=== PATIENT | male | born 1960 | race Caucasian/White ===

== ENCOUNTER 2018-07-07 02:29 | Emergency (ER) | payer OTHER ==
[~2018-07-07] VITALS: Ht 160 cm; Wt 74.8 kg
[~2018-07-07 02:29] MED LIST: ALBU18HF INHALATION; ALBU2.5V3 NEB; ALBU8.5H8 INH; ALBU90AE INHALATION; AZIT250T PO; CETI10CA PO; D-ME473S2 PO; GUAI118L94 PO; IBUP-1542 PO; LEVO500T48 PO; MED4DP PO; PRED20TA PO; PRED50TA PO
[2018-07-07 02:34] VITALS: BP 150/79; Ht 160 cm; Wt 74.8 kg
[2018-07-07] MEDS ORDERED: ALBUTEROL 0.5% (NEB) 2.5 MG/0.5 ML AMP INH STA (02:42)
[2018-07-07] MEDS ORDERED: DEXAMETHASONE 10 MG/ML 1 ML INJ IM STA (02:42)
[2018-07-07] MEDS ORDERED: IPRATROPIUM (NEB) 0.5 MG/2.5 ML AMP INH STA (02:42)
--- NOTE | 2018-07-07 02:50 | ERD ---
ER Documentation Chief Complaint Chief Complaint ASTHMA EXACERBATION HPI 57-year-old male, with history of asthma, presents the emergency department, complaining of 2 days with progressive worsening of cough and wheezing, associated with shortness of breath on exertion. The patient has been using his inhaler every 6 hours without improvement of the symptoms. Otherwise he denies chest pain, no history of hospital admissions or intubations ROS All systems reviewed and are negative except as per history of present illness. Medications Home Meds Active Scripts Albuterol Sulfate* (Albuterol Sulfate* Neb) 0.083%-3 Ml Neb, 2.5 MG NEB Q4 PRN for SHORTNESS OF BREATH, #30 EA Prov:DOREEN FITZGERALD MD 07/07/18 Albuterol Sulfate* (Proair HFA*) 8.5 Gm Hfa.aer.ad, 2 PUFF INH Q4, #1 INHALER Prov:DOREEN FITZGERALD MD 07/07/18 Azithromycin* (Zithromax*) 250 Mg Tablet, 250 MG PO .ZPACK DIRECTED, #6 TAB TAKE 500 MG (2 TABS) THE FIRST DAY THEN 250 MG (1 TAB) DAYS 2-5 Prov:DOREEN FITZGERALD MD 07/07/18 Prednisone* (Prednisone*) 20 Mg Tab, 60 MG PO DAILY for 5 Days, TAB Prov:DOREEN FITZGERALD MD 07/07/18 Albuterol Sulfate* (Ventolin HFA*) 18 Gm Hfa.aer.ad, 2 PUFF INHALATION Q4H, #1 INHALER Prov:VIVIANE DURAN 02/18/16 Prednisone* (Prednisone*) 20 Mg Tab, 40 MG PO DAILY for 4 Days, TAB Prov:VIVIANE DURAN 02/18/16 Azithromycin* (Zithromax*) 250 Mg Tablet, 250 MG PO .ZPACK DIRECTED, #6 TAB TAKE 500 MG (2 TABS) THE FIRST DAY THEN 250 MG (1 TAB) DAYS 2-5 Prov:VIVIANE DURAN 02/18/16 Azithromycin* (Zithromax*) 250 Mg Tablet, 250 MG PO .ZPACK DIRECTED, #6 TAB TAKE 500 MG (2 TABS) THE FIRST DAY THEN 250 MG (1 TAB) DAYS 2-5 Prov:ANNIE ORTIZ MD 02/11/16 Albuterol Sulfate* (Albuterol Sulfate* Neb) 0.083%-3 Ml Neb, 2.5 MG NEB Q4 PRN for SHORTNESS OF BREATH, #30 EA Prov:ANNIE ORTIZ MD 02/11/16 Prednisone* (Prednisone*) 20 Mg Tab, 60 MG PO DAILY for 6 Days, TAB 60 mg and mouth for 3 days then 40 mg and mouth for 3 days Prov:ANNIE ORTIZ MD 02/11/16 Prednisone* (Prednisone*) 20 Mg Tab, 40 MG PO DAILY for 4 Days, TAB Prov:NELLY WATKINS PA-C 01/26/16 Albuterol Sulfate* (Proair HFA*) 8.5 Gm Hfa.aer.ad, 2 PUFF INH Q4, #1 INHALER Prov:NELLY WATKINS PA-C 01/26/16 Prednisone* (Prednisone*) 20 Mg Tab, 40 MG PO DAILY for 4 Days, TAB Prov:CECILIA HERNANDEZ PA-C 12/24/15 Azithromycin* (Zithromax*) 250 Mg Tablet, 250 MG PO .ZPACK DIRECTED, #6 TAB TAKE 500 MG (2 TABS) THE FIRST DAY THEN 250 MG (1 TAB) DAYS 2-5 Prov:CECILIA HERNANDEZ PA-C 12/24/15 Cetirizine Hcl* (Zyrtec*) 10 Mg Capsule, 10 MG PO DAILY, #30 TAB.CHEW Prov:RC URBINA NP 10/23/15 Guaifenesin-Codeine Phosphate* (Guaifenesin* with Codeine Liq) 120 Ml Liquid, 5 ML PO Q4H for COUGH, #60 ML Prov:RC URBINA NP 10/23/15 Prednisone* (Prednisone*) 50 Mg Tablet, 50 MG PO DAILY, #5 TAB Prov:RC URBINA NP 10/23/15 Ibuprofen* (Motrin*) 600 Mg Tab, 600 MG PO Q6H PRN for PAIN AND OR ELEVATED TEMP , #30 TAB Prov:RC URBINA NP 10/23/15 Albuterol Sulfate* (Proair HFA*) 8.5 Gm Hfa.aer.ad, 2 PUFF INH Q4H PRN for WHEEZING AND SOB, #1 INHALER Prov:RC URBINA NP 10/23/15 Methylprednisolone* (Medrol* DOSE PACK) 4 Mg/Dose-Pack Tab.ds.pk, 4 MG PO . DIRECTED, #1 PACKET Prov:DAVID PIERSON F 04/20/15 Levofloxacin* (Levaquin*) 500 Mg Tab, 750 MG PO DAILY for 5 Days, TAB Prov:DAVID PIERSON F 04/20/15 Reported Medications Dextromethorphan Hb-Promethazine Hcl* (Promethazine DM* Syrup) 473 Ml Syrup, 5 ML PO Q6 PRN for COUGH, ML 04/20/15 Albuterol Sulfate (Proair Respiclick) 90 Mcg Aer.pow.ba, 1 PUFF INHALATION Q4 PRN for WHEEZING AND SOB, #1 BOTTLE 04/20/15 Allergies Allergies: Coded Allergies: No Known Allergy (Unverified , 02/11/16) PMhx/Soc Medical and Surgical Hx: pt denies Medical Hx, pt denies Surgical Hx History of Surgery: No Anesthesia Reaction: No Hx Neurological Disorder: No Hx Respiratory Disorders: Yes (asthma ) Hx Cardiac Disorders: No Hx Psychiatric Problems: No Hx Miscellaneous Medical Probl: No Hx Alcohol Use: No Hx Substance Use: No Hx Tobacco Use: No Smoking Status: Never smoker Physical Exam Vitals Vital Signs Date Temp Pulse Resp B/P (MAP) Pulse Ox O2 O2 Flow FiO2 Time Delivery Rate 07/07/18 89 20 98 Room Air 04:03 07/07/18 76 20 100 Nasal 3.0 02:57 Cannula 07/07/18 97.6 83 20 150/79 99 02:34 (102) Physical Exam Patient alert, oriented, in mild respiratory distress due to cough and wheezing. Vital signs stable. HEENT: Normocephalic, atraumatic. EYES: PERRLA, EOMI, Sclera and conjunctiva appear normal. EARS: Canals clear, tympanic membranes WNL. THROAT: Normal oropharynx. NECK: Supple, No lymphadenopathy. Full ROM without pain or tenderness. HEART: RRR, no rubs, murmurs, clicks or gallops. LUNGS: Bilateral wheezing to auscultation. ABDOMEN: Soft, non-tender without masses or hepatosplenomegaly. EXTREMITIES: No edema bilaterally. BACK: Full ROM, no deformity, normal back exam NEURO: Cranial nerves grossly intact, no motor or sensory deficit SKIN: No rashes, no petechia. Results 24 hrs Current Medications Medications Dose Sig/Carlos Start Time Status Last (Trade) Ordered Route PRN Stop Time Admin Dose Reason Admin Albuterol 10 mg ONCE STAT 07/07/18 DC 07/07/18 (Proventil INH 02:42 07/07/18 02:57 0.5% (Neb)) 02:44 Ipratropium 1 mg ONCE STAT 07/07/18 DC 07/07/18 Mullens INH 02:42 07/07/18 02:57 (Atrovent 02:44 0.02% (Neb)) 10 mg ONCE STAT 07/07/18 DC 07/07/18 Dexamethasone IM 02:42 07/07/18 02:53 (Decadron) 02:44 Procedures/MDM At the time of discharge, vital signs stable, no respiratory distress. Differential diagnosis include but not limited to: Respiratory infection bacterial/viral/fungal. Asthma/COPD, pneumonitis, allergies, GERD. Less likely foreign body aspiration, cardiac related, aspiration pneumonia, malignancy. Physical examination and clinical presentation consistent most likely with acute asthma exacerbation with early superimposed bacterial infection. During the ED course the patient remained stable, received a nebulized treatment and steroids in the ED presenting overall improvement of the symptoms, no new complaints. Clinical impression discussed with the patient who agrees with management. The patient is stable to be treated outpatient and will be discharged home. Some side effects of prescribed medications (headache, rash, nausea, vomiting, diarrhea, drowsiness, habituation, bleeding, hypertension, interactions with other medications) were reviewed. The patient was instructed to follow up with the primary care provider in the next 48h. If symptoms persist, worsen or new symptoms develop, then patient should return to the ED immediately. Disclaimer: Inadvertent spelling and grammatical errors are likely due to EHR/dictation software use and do not reflect on the overall quality of patient care. Also, please note that the electronic time recorded on this note does not necessarily reflect the actual time of the patient encounter. Departure Diagnosis: Primary Impression: Asthma with acute exacerbation Condition: Stable Additional Instructions: Holly [facility]oit [facility] para arguelles servicio. Esperamos que en arguelles visita a la ezio de emergencia arguelles problema medico haya sido solucionado y que se sienta mucho mejor. Para estar seguros que arguelles mejoria sigue en proceso, le pedimos el favor de hacer vanessa deana de seguimiento medico con arguelles doctor primario en los proximos 2-4 polanco. Lleve con usted estos documentos y las medicinas recetadas. Si baylee sintomas empeoran, NO SE ESPERE, por favor regrese a ezio de emergencia INMEDIATAMENTE. En gabby que usted no tenga un mdico de atencin primaria: Llame al mdico o clnica comunitaria de referencia que aparece abajo tamanna las horas de consultorio para hacer vanessa deana para que le vean. CLINICAS: [facility] [phone] [facility] [phone] [facility] [phone] [facility] [phone] [address] [facility]. [facility] [phone] [address] [facility] [phone] DOREEN SÁNCHEZ MD Jul 07, 2018 02:50
[2018-07-07 04:03] VITALS: PULSE 89; RESP 20
[2018-07-07] MEDS ORDERED: PRED20TA PO (04:29)
[2018-07-07] MEDS ORDERED: AZIT250T PO (04:30)
[2018-07-07] MEDS ORDERED: ALBU8.5H8 INH (04:30)
[2018-07-07] MEDS ORDERED: ALBU2.5V3 NEB (04:41)
== END 2018-07-07 04:43 | disposition home or self-care (01) ==
LOC: FTE 02:29
DX: J45.901 Unspecified asthma with (acute) exacerbation (principal)
CPT/HCPCS: 94644; J1100; 96372

== ENCOUNTER 2018-08-05 16:32 | Emergency (ER) | payer OTHER ==
[~2018-08-05] VITALS: Ht 157.5 cm; Wt 72.0 kg
[2018-08-05 16:36] VITALS: Ht 157.5 cm; Wt 72.0 kg
[2018-08-05] MEDS ORDERED: LIDOCAINE 1% (MPF) 5 ML VIAL INFIL ONE (20:00)
[2018-08-05 21:57] VITALS: BP 132/87; PULSE 68; RESP 18
--- NOTE | 2018-08-06 20:08 | ERD ---
ER Documentation Chief Complaint Chief Complaint complains of a abscess to the buttock area x2 days HPI History of Present Illness: 57-year-old male who reports a past medical history of asthma coming in today with complaint of possible abscess of the buttocks area present for 2 days and worsening. Patient reports similar symptoms before a few years ago. Patient denies any other associated symptoms. Patient able to have bowel movement, no blood noted. At home pharmacological/nonpharmacological treatment for symptoms: denies Denies social concerns; Denies recent foreign travel ROS All systems reviewed and are negative except as per history of present illness. Medications Home Meds Active Scripts Albuterol Sulfate* (Albuterol Sulfate* Neb) 0.083%-3 Ml Neb, 2.5 MG NEB Q4 PRN for SHORTNESS OF BREATH, #30 EA Prov:DOREEN FITZGERALD MD 07/07/18 Albuterol Sulfate* (Proair HFA*) 8.5 Gm Hfa.aer.ad, 2 PUFF INH Q4, #1 INHALER Prov:DOREEN FITZGERALD MD 07/07/18 Azithromycin* (Zithromax*) 250 Mg Tablet, 250 MG PO .ZPACK DIRECTED, #6 TAB TAKE 500 MG (2 TABS) THE FIRST DAY THEN 250 MG (1 TAB) DAYS 2-5 Prov:DOREEN FITZGERALD MD 07/07/18 Prednisone* (Prednisone*) 20 Mg Tab, 60 MG PO DAILY for 5 Days, TAB Prov:DOREEN FITZGERALD MD 07/07/18 Albuterol Sulfate* (Ventolin HFA*) 18 Gm Hfa.aer.ad, 2 PUFF INHALATION Q4H, #1 INHALER Prov:VIVIANE DURAN 02/18/16 Prednisone* (Prednisone*) 20 Mg Tab, 40 MG PO DAILY for 4 Days, TAB Prov:VIVIANE DURAN 02/18/16 Azithromycin* (Zithromax*) 250 Mg Tablet, 250 MG PO .ZPACK DIRECTED, #6 TAB TAKE 500 MG (2 TABS) THE FIRST DAY THEN 250 MG (1 TAB) DAYS 2-5 Prov:VIVIANE DURAN 02/18/16 Azithromycin* (Zithromax*) 250 Mg Tablet, 250 MG PO .ZPACK DIRECTED, #6 TAB TAKE 500 MG (2 TABS) THE FIRST DAY THEN 250 MG (1 TAB) DAYS 2-5 Prov:ANNIE ORTIZ MD 02/11/16 Albuterol Sulfate* (Albuterol Sulfate* Neb) 0.083%-3 Ml Neb, 2.5 MG NEB Q4 PRN for SHORTNESS OF BREATH, #30 EA Prov:ANNIE ORTIZ MD 02/11/16 Prednisone* (Prednisone*) 20 Mg Tab, 60 MG PO DAILY for 6 Days, TAB 60 mg and mouth for 3 days then 40 mg and mouth for 3 days Prov:ANNIE ORTIZ MD 02/11/16 Prednisone* (Prednisone*) 20 Mg Tab, 40 MG PO DAILY for 4 Days, TAB Prov:NELLY WATKINS PA-C 01/26/16 Albuterol Sulfate* (Proair HFA*) 8.5 Gm Hfa.aer.ad, 2 PUFF INH Q4, #1 INHALER Prov:NELLY WATKINS PA-C 01/26/16 Prednisone* (Prednisone*) 20 Mg Tab, 40 MG PO DAILY for 4 Days, TAB Prov:CECILIA HERNANDEZ PA-C 12/24/15 Azithromycin* (Zithromax*) 250 Mg Tablet, 250 MG PO .DennisPACASIMIRO DIRECTED, #6 TAB TAKE 500 MG (2 TABS) THE FIRST DAY THEN 250 MG (1 TAB) DAYS 2-5 Prov:CECILIA HERNANDEZ PA-C 12/24/15 Cetirizine Hcl* (Zyrtec*) 10 Mg Capsule, 10 MG PO DAILY, #30 TAB.CHEW Prov:RC URBINA NP 10/23/15 Guaifenesin-Codeine Phosphate* (Guaifenesin* with Codeine Liq) 120 Ml Liquid, 5 ML PO Q4H for COUGH, #60 ML Prov:RC URBINA NP 10/23/15 Prednisone* (Prednisone*) 50 Mg Tablet, 50 MG PO DAILY, #5 TAB Prov:RC URBINA NP 10/23/15 Ibuprofen* (Motrin*) 600 Mg Tab, 600 MG PO Q6H PRN for PAIN AND OR ELEVATED TEMP, #30 TAB Prov:RC URBINA KOMAL Toth. EMERGENCY MEDICAL SERVICES COORDINATOR 10/23/15 Albuterol Sulfate* (Proair HFA*) 8.5 Gm Hfa.aer.ad, 2 PUFF INH Q4H PRN for WHEEZING AND SOB, #1 INHALER Prov:RC URBINA Janey. EMERGENCY MEDICAL SERVICES COORDINATOR 10/23/15 Methylprednisolone* (Medrol* DOSE PACK) 4 Mg/Dose-Pack Tab.ds.pk, 4 MG PO . DIRECTED, #1 PACKET Prov:DAVID PIERSON F 04/20/15 Levofloxacin* (Levaquin*) 500 Mg Tab, 750 MG PO DAILY for 5 Days, TAB Prov:DAVID PIERSON F 04/20/15 Reported Medications Dextromethorphan Hb-Promethazine Hcl* (Promethazine DM* Syrup) 473 Ml Syrup, 5 ML PO Q6 PRN for COUGH, ML 04/20/15 Albuterol Sulfate (Proair Respiclick) 90 Mcg Aer.pow.ba, 1 PUFF INHALATION Q4 PRN for WHEEZING AND SOB, #1 BOTTLE 04/20/15 Allergies Allergies: Coded Allergies: No Known Allergy (Unverified , 02/11/16) PMhx/Soc History of Surgery: No Anesthesia Reaction: No Hx Neurological Disorder: No Hx Respiratory Disorders: Yes (asthma ) Hx Cardiac Disorders: No Hx Psychiatric Problems: No Hx Miscellaneous Medical Probl: Yes (Hemrrhoids/abscess) Hx Alcohol Use: No Hx Substance Use: No Hx Tobacco Use: No Smoking Status: Never smoker FmHx Family History: diabetes Physical Exam Vitals Vital Signs Date Temp Pulse Resp B/P (MAP) Pulse Ox O2 O2 Flow FiO2 Time Delivery Rate 08/05/18 98.0 68 18 132/87 97 Room Air 21:57 (102) 08/05/18 98.6 70 20 145/82 99 16:36 (103) Physical Exam Const: No acute distress Head: Atraumatic Eyes: Normal Conjunctiva ENT: Normal External Ears, Nose and Mouth. Neck: Full range of motion. No meningismus. Resp: Clear to auscultation bilaterally Cardio: Regular rate and rhythm, no murmurs Abd: Soft, non tender, non distended. Normal bowel sounds Skin: No petechiae or rashes Back: No midline or flank tenderness Ext: No cyanosis, or edema Neur: Awake and alert Psych: Normal Mood and Affect Rectal Exam: External hemorrhoids noted, firm to touch, no warmth, no erythema Results 24 hrs Current Medications Medications Dose Sig/Carlos Start Time Status Last (Trade) Ordered Route PRN Stop Time Admin Dose Reason Admin Lidocaine 5 ml ONCE ONCE 08/05/18 DC (Xylocaine INFIL 20:00 08/05/18 1% (Mpf)) 20:01 Procedures/MDM ED course includes a thorough examination and history. ED course includes incision and drainage. Medications: Imaging: Labs: Dr. Humphreys to bedside to evaluate patient. Agrees with plan of care. Low suspicion for life-threatening medical emergency. Low suspicion for gastrointestinal emergency that requires hospitalization or immediate surgical intervention. Incision and Drainage by me: Location: Rectum Anesthesia: Local 1% Lidocaine Technique: 16-gauge needle used to puncture external hemorrhoid, thrombosed clots expelled; only was able to remove approximately 30% of thrombosed clots, some appeared to be more internal so did not attempt to remove those. Packing: None Complications: patient with mild bleeding; reported that he takes aspirin every day and has taken 600 to 800 mg of ibuprofen for pain over the past day; bleeding control at time of departure Otherwise healthy patient presenting with constellation of symptoms likely representing thrombosed external hemorrhoids as characterized by history, physical exam findings. No respiratory distress, otherwise relatively well appearing and nontoxic. Patient educated on diagnoses, prescriptions, follow-up care, return precautions. Strict return precautions given for worsening condition; questions answered discharge. Disposition for discharge with followup in 2 days with PCP/clinic. Departure Diagnosis: Primary Impression: Thrombosed external hemorrhoids Condition: Stable Patient Instructions: Thrombosed Hemorrhoids Referrals: [facility] YOU HAVE RECEIVED A MEDICAL SCREENING EXAM AND THE RESULTS INDICATE THAT YOU DO NOT HAVE A CONDITION THAT REQUIRES URGENT TREATMENT IN THE EMERGENCY DEPARTMENT. FURTHER EVALUATION AND TREATMENT OF YOUR CONDITION CAN WAIT UNTIL YOU ARE SEEN IN YOUR DOCTORS OFFICE WITHIN THE NEXT 1-2 DAYS. IT IS YOUR RESPONSIBILITY TO MAKE AN APPOINTMENT FOR FOLOW-UP CARE. IF YOU HAVE A PRIMARY DOCTOR --you should call your primary doctor and schedule an appointment IF YOU DO NOT HAVE A PRIMARY DOCTOR YOU CAN CALL OUR PHYSICIAN REFERRAL HOTLINE AT IF YOU CAN NOT AFFORD TO SEE A PHYSICIAN YOU CAN CHOSE FROM THE FOLLOWING [facility] [address] [facility] [address] [facility] [address] [facility] [address] [facility]. [facility] [address] [facility]. [facility] [address] [facility]. [facility] YOU HAVE RECEIVED A MEDICAL SCREENING EXAM AND THE RESULTS INDICATE THAT YOU DO NOT HAVE A CONDITION THAT REQUIRES URGENT TREATMENT IN THE EMERGENCY DEPARTMENT. FURTHER EVALUATION AND TREATMENT OF YOUR CONDITION CAN WAIT UNTIL YOU ARE SEEN IN YOUR DOCTORS OFFICE WITHIN THE NEXT 1-2 DAYS. IT IS YOUR RESPONSIBILITY TO MAKE AN APPOINTMENT FOR FOLOW-UP CARE. IF YOU HAVE A PRIMARY DOCTOR --you should call your primary doctor and schedule and appointment IF YOU DO NOT HAVE A PRIMARY DOCTOR YOU CAN CALL OUR PHYSICIAN REFERRAL HOTLINE AT . IF YOU CAN NOT AFFORD TO SEE A PHYSICIAN YOU CAN CHOSE FROM THE FOLLOWING [facility]: [facility] [address] [place] [address] [facility] [address] [place] [address] [facility] [address] [place] [address] Additional Instructions: Call your primary care doctor TOMORROW for an appointment during the next 2-3 days.See the doctor sooner or return here if your condition worsens before your appointment time. ED follow-up with your primary care doctor for possible evaluation of your hemorrhoids. It is recommended to take a sitz bath twice a day. Keep the area clean and dry. Try to avoid the site that was removed. THELMA AU NP August 06, 2018 20:08
== END 2018-08-05 21:59 | disposition home or self-care (01) ==
LOC: FTE 16:32
DX: K64.5 Perianal venous thrombosis (principal); J45.909 Unspecified asthma, uncomplicated

== ENCOUNTER 2018-10-31 04:22 | Emergency (ER) | payer OTHER ==
[~2018-10-31] VITALS: Ht 165.1 cm; Wt 74.3 kg
[~2018-10-31 04:22] MED LIST changes: +BENZ-6 PO
[2018-10-31 04:29] VITALS: BP 152/74; PULSE 82; RESP 18; Ht 165.1 cm; Wt 74.3 kg
[2018-10-31] MEDS ORDERED: ALBUTEROL 0.083% (NEB) 2.5 MG/3 ML AMP HHN STA ×2 (04:45→05:32)
--- NOTE | 2018-10-31 04:49 | ERD ---
ER Documentation Chief Complaint Chief Complaint SOB/ASTHMA X 3 DAYS HPI This is a 57-year-old male who presents emergency department with complaints of shortness of breath, wheezing for about 3 days. Stated that his inhaler is not working. Stated that he has history of asthma. Denies headache, head injury, loss of consciousness, dizziness, neck pain, neck stiffness, throat pain, difficulty swallowing, difficulty breathing lying flat, shoulder pain, chest pain, back pain, abdominal pain, nausea, vomiting, constipation, diarrhea, urinary symptoms, loss of bowel and bladder control, trauma, injury, falls, difficulty walking due to pain, numbness or tingling sensation, calf pain, recent travel, recent major surgery in the last 3 weeks, calf pain, recent long travel, recent exposure to any illness, recent antibiotic use in the last 3 months, fever, chills, seizures. Past medical history: Asthma. Surgical history: Denies. Social: Denies smoking, use of alcoholic beverages, use of illegal drugs. ROS All systems reviewed and are negative except as per history of present illness. Medications Home Meds Active Scripts Albuterol Sulfate* (Albuterol Sulfate* Neb) 0.083%-3 Ml Neb, 2.5 MG NEB Q4 PRN for SHORTNESS OF BREATH, #30 EA Prov:RAVEN VALENTINO 10/31/18 Albuterol Sulfate* (Proair HFA*) 8.5 Gm Hfa.aer.ad, 2 PUFF INH Q4 PRN for WHEEZING, #1 INHALER Prov:RAVEN VALENTINO 10/31/18 Prednisone* (Prednisone*) 20 Mg Tab, 60 MG PO DAILY for 4 Days, TAB Prov:RAVEN VALENTINO 10/31/18 Benzonatate* (Tessalon Perle*) 100 Mg Capsule, 100 MG PO Q8H PRN for COUGH, #15 CAP Prov:RAVEN VALENTINO 10/31/18 Azithromycin* (Zithromax*) 250 Mg Tablet, 250 MG PO .CLEOCK DIRECTED, #6 TAB TAKE 500 MG (2 TABS) THE FIRST DAY THEN 250 MG (1 TAB) DAYS 2-5 Prov:RAVEN VALENTINO 10/31/18 Albuterol Sulfate* (Albuterol Sulfate* Neb) 0.083%-3 Ml Neb, 2.5 MG NEB Q4 PRN for SHORTNESS OF BREATH, #30 EA Prov:DOREEN FITZGERALD MD 07/07/18 Albuterol Sulfate* (Proair HFA*) 8.5 Gm Hfa.aer.ad, 2 PUFF INH Q4, #1 INHALER Prov:DOREEN FITZGERALD MD 07/07/18 Azithromycin* (Zithromax*) 250 Mg Tablet, 250 MG PO .DennisPACASIMIRO DIRECTED, #6 TAB TAKE 500 MG (2 TABS) THE FIRST DAY THEN 250 MG (1 TAB) DAYS 2-5 Prov:DOREEN FITZGERALD MD 07/07/18 Prednisone* (Prednisone*) 20 Mg Tab, 60 MG PO DAILY for 5 Days, TAB Prov:DOREEN FITZGERALD MD 07/07/18 Albuterol Sulfate* (Ventolin HFA*) 18 Gm Hfa.aer.ad, 2 PUFF INHALATION Q4H, #1 INHALER Prov:VIVIANE DURAN 02/18/16 Prednisone* (Prednisone*) 20 Mg Tab, 40 MG PO DAILY for 4 Days, TAB Prov:VIVIANE DURAN 02/18/16 Azithromycin* (Zithromax*) 250 Mg Tablet, 250 MG PO .JOSÉ MIGUEL DIRECTED, #6 TAB TAKE 500 MG (2 TABS) THE FIRST DAY THEN 250 MG (1 TAB) DAYS 2-5 Prov:VIVIANE DURAN 02/18/16 Azithromycin* (Zithromax*) 250 Mg Tablet, 250 MG PO .JOSÉ MIGUEL DIRECTED, #6 TAB TAKE 500 MG (2 TABS) THE FIRST DAY THEN 250 MG (1 TAB) DAYS 2-5 Prov:ANNIE ORTIZ MD 02/11/16 Albuterol Sulfate* (Albuterol Sulfate* Neb) 0.083%-3 Ml Neb, 2.5 MG NEB Q4 PRN for SHORTNESS OF BREATH, #30 EA Prov:ANNIE ORTIZ MD 02/11/16 Prednisone* (Prednisone*) 20 Mg Tab, 60 MG PO DAILY for 6 Days, TAB 60 mg and mouth for 3 days then 40 mg and mouth for 3 days Prov:ANNIE ORTIZ MD 02/11/16 Prednisone* (Prednisone*) 20 Mg Tab, 40 MG PO DAILY for 4 Days, TAB Prov:NELLY WATKINS PA-C 01/26/16 Albuterol Sulfate* (Proair HFA*) 8.5 Gm Hfa.aer.ad, 2 PUFF INH Q4, #1 INHALER Prov:NELLY WATKINS PA-C 01/26/16 Prednisone* (Prednisone*) 20 Mg Tab, 40 MG PO DAILY for 4 Days, TAB Prov:CECILIA HERNANDEZ PA-C 12/24/15 Azithromycin* (Zithromax*) 250 Mg Tablet, 250 MG PO .ZPACK DIRECTED, #6 TAB TAKE 500 MG (2 TABS) THE FIRST DAY THEN 250 MG (1 TAB) DAYS 2-5 Prov:CECILIA HERNANDEZ PA-C 12/24/15 Cetirizine Hcl* (Zyrtec*) 10 Mg Capsule, 10 MG PO DAILY, #30 TAB.CHEW Prov:RC URBINA NP 10/23/15 Guaifenesin-Codeine Phosphate* (Guaifenesin* with Codeine Liq) 120 Ml Liquid, 5 ML PO Q4H for COUGH, #60 ML Prov:RC URBINA NP 10/23/15 Prednisone* (Prednisone*) 50 Mg Tablet, 50 MG PO DAILY, #5 TAB Prov:RC URBINA NP 10/23/15 Ibuprofen* (Motrin*) 600 Mg Tab, 600 MG PO Q6H PRN for PAIN AND OR ELEVATED TEMP, #30 TAB Prov:RC URBINA NP 10/23/15 Albuterol Sulfate* (Proair HFA*) 8.5 Gm Hfa.aer.ad, 2 PUFF INH Q4H PRN for WHEEZING AND SOB, #1 INHALER Prov:RC URBINA NP 10/23/15 Methylprednisolone* (Medrol* DOSE PACK) 4 Mg/Dose-Pack Tab.ds.pk, 4 MG PO . DIRECTED, #1 PACKET Prov:DAVID PIERSON 04/20/15 Levofloxacin* (Levaquin*) 500 Mg Tab, 750 MG PO DAILY for 5 Days, TAB Prov:DAVID PIERSON 04/20/15 Reported Medications Dextromethorphan Hb-Promethazine Hcl* (Promethazine DM* Syrup) 473 Ml Syrup, 5 ML PO Q6 PRN for COUGH, ML 04/20/15 Albuterol Sulfate (Proair Respiclick) 90 Mcg Aer.pow.ba, 1 PUFF INHALATION Q4 PRN for WHEEZING AND SOB, #1 BOTTLE 04/20/15 Allergies Allergies: Coded Allergies: No Known Allergy (Unverified , 02/11/16) PMhx/Soc Medical and Surgical Hx: pt denies Surgical Hx History of Surgery: No Anesthesia Reaction: No Hx Neurological Disorder: No Hx Respiratory Disorders: Yes (asthma ) Hx Cardiac Disorders: No Hx Psychiatric Problems: No Hx Miscellaneous Medical Probl: Yes (Hemrrhoids/abscess) Hx Alcohol Use: No Hx Substance Use: No Hx Tobacco Use: No Smoking Status: Never smoker Physical Exam Vitals Physical Exam Head: Atraumatic Eyes: Normal Conjunctiva ENT: Normal External Ears, Nose and Mouth. Bilateral ears: TMs are not erythematous. No bleeding. No discharge. No hearing loss. No mastoid tenderness. Nose: There is no frontal or maxillary sinus tenderness palpation. Throat: Uvula is in midline and nondisplaced. Tonsils are +1 bilaterally withou t redness and without exudates. Tolerating secretions. Patent airway. Speaks full and clear sentences. No tripoding. Neck: Full range of motion. No meningismus. No nuchal rigidity. No signs of meningeal irritation. Resp: Wheezing bilaterally. Cardio: Regular rate and rhythm, no murmurs Abd: Soft, non tender, non distended. Normal bowel sounds. Negative Wright sign. Skin: No petechiae or rashes. Color appears normal for ethnicity. No skin tenting. No signs of severe dehydration. Back: No midline or flank tenderness Ext: No cyanosis, or edema Neur: Awake and alert. No neurological deficits. Psych: Normal Mood and Affect Results 24 hrs Current Medications Medications Dose Sig/Carlos Start Time Status Last (Trade) Ordered Route PRN Stop Time Admin Dose Reason Admin Albuterol 5 mg ONCE STAT 10/31/18 DC 10/31/18 (Proventil HHN 04:45 05:00 0.083% (Neb)) 10/31/18 04:47 Ipratropium 0.5 mg ONCE ONCE 10/31/18 DC 10/31/18 [place] [facility] 05:00 05:00 (Atrovent 10/31/18 05:01 0.02% (Neb)) 125 mg ONCE ONCE 10/31/18 DC 10/31/18 Methylprednis IV 05:00 04:54 olone Sodium 10/31/18 05:01 Succinate (Solu-Medrol) Albuterol 5 mg ONCE STAT 10/31/18 DC 10/31/18 (Proventil HHN 05:32 05:50 0.083% (Neb)) 10/31/18 05:33 Procedures/MDM Diagnostic tests: Clinical exam. Treatment: Saline lock. Solu-Medrol IV. Albuterol and Atrovent breathing treatment. Re-evaluation: Respirations even and unlabored. No accessory muscle use in breathing. No wheezing. Lung sounds are clear to auscultation. Speaks full and clear sentences. Stated that he feels much better this time and that is ready to go home. Stated that he is comfortable to go home. Differential diagnosis I have low suspicion for sepsis, peritonsillar abscess, aspiration pneumonia, pneumonia, bronchospasms. Final diagnosis: Asthma exacerbation. Prescription: Pro-air. Prednisone. Tessalon Perles. Follow-up with PCP in the next 24-48 hours. Come back here in the emergency department for any new symptoms or any worsening symptoms. All questions and concerns were answered. Patient and family members verbalized understanding and agreed with plan of care. Hemodynamically stable on discharge. Departure Diagnosis: Primary Impression: Asthma with acute exacerbation Condition: Stable Additional Instructions: Follow-up with PCP in the next 24-48 hours. Come back here in the emergency department for any new symptoms or any worsening symptoms. RAVEN VALENTINO Oct 31, 2018 04:49
[2018-10-31] MEDS ORDERED: METHYLPREDNISOLONE 125 MG INJ IV ONE (05:00)
[2018-10-31] MEDS ORDERED: IPRATROPIUM (NEB) 0.5 MG/2.5 ML AMP HHN ONE (05:00)
== END 2018-10-31 06:20 | disposition home or self-care (01) ==
LOC: FTE 04:22
DX: J45.901 Unspecified asthma with (acute) exacerbation (principal)
CPT/HCPCS: 94640; 94664; 96374; 99284; J2930